=== PATIENT | male | born 1955 | race Caucasian/White ===

== ENCOUNTER 2020-03-16 21:01 | Emergency (ER) | payer BC, OTHER ==
[2020-03-16 21:06] VITALS: BP 145/88; PULSE 66; TEMP 97.9; BMI 24.7
[2020-03-16] MEDS ORDERED: ONDANSETRON 4 MG/2 ML VIAL IVPUSH ONE (21:07)
[2020-03-16] MEDS ORDERED: KETOROLAC TROMETHAMINE 30 MG/1 ML VIAL IVPUSH ONE (21:07)
[2020-03-16] MEDS ORDERED: SODIUM CHLORIDE 1,000 ML IV ONE (21:07)
[2020-03-16] MEDS ORDERED: morphine CARPU-JECT 2 MG/1 ML DISP.SYRIN IVPUSH ONE (21:18)
[2020-03-16] MEDS ORDERED: KETOROLAC TROMETHAMINE 30 MG/1 ML VIAL ONE (21:21)
[2020-03-16] MEDS ORDERED: ONDANSETRON 4 MG/2 ML VIAL ONE (21:21)
[2020-03-16 21:27] LABS: EOS % 0.8 % (0-4.5); HEMATOCRIT 46.5 % (35.4-49); HEMOGLOBIN 15.9 GM/dl (11.7-16.9); MCH 30.2 pg (25.7-33.7); MCHC 34.3 g/dl (32.0-35.9); MEAN CELL VOLUME 87.9 fl (80-96); MEAN PLT VOLUME 9.1 fl (7.5-11.1); MONO % 5.1 % (3.8-10.2); NEUT % 65.1 % (42.8-82.8); PLATELET COUNT 286 K/MM3 (134-434); RBC 5.28 M/mm3 (4.00-5.60); RDW 13.2 % (11.9-15.9); WHITE BLOOD COUNT 13.2 K/mm3 (4.0-10.8)
[2020-03-16 21:35] LABS: ALBUMIN 4.4 g/dl (3.4-5.0); BILIRUBIN,TOTAL 0.6 mg/dl (0.2-1); CALCIUM 9.5 mg/dl (8.5-10); CREATININE 1.4 mg/dl (0.55-1.3); POTASSIUM 4.1 mmol/L (3.5-5.1)
--- NOTE | 2020-03-16 22:51 | PDOC ---
Documentation entered by Izabela Burr SCRIBE, acting as scribe for Edwin Durant MD. Edwin Durant MD: This documentation has been prepared by the deweyibe, Izabela Burr SCRIBE, under my direction and personally reviewed by me in its entirety. I confirm that the documentation accurately reflects all work, treatment, procedures, and medical decision making performed by me. History of Present Illness - General Chief Complaint: Pain Stated Complaint: ABDOMINAL PAIN Time Seen by Provider: 03/16/20 21:06 History Source: Patient Exam Limitations: No Limitations - History of Present Illness Initial Comments: 03/16/20 21:45 The patient is a 64-year-old male who presents to the emergency department with abdominal pain. The patient reports a sudden onset of left flank pain about an hour ago radiating forward to the left lower quadrant, associated with nausea. The patient reports some mild pain yesterday but wasnt this severe. The patient reports he did have a single episode of dark-colored urine yesterday, denies dy suria, hematuria, frequency, or urgency to urinate. PAST MEDICAL HISTORY: no significant history. Denies prior history of kidney stones. PAST SURGICAL HISTORY: no significant history FAMILY HISTORY: no pertinent history SOCIAL HISTORY: Pt lives with family and is employed. +Tobacco use. MEDICATIONS: reviewed ALLERGIES: As per nursing notes PCP: Dr. Small. Review of system: General: No fevers or chills, no weakness, no weight loss HEENT: No change in vision. No sore throat. No ear pain CardioVascular: No chest pain or shortness of breath Respiratory:No cough, or wheezing. Gastrointestinal: +left flank pain. +left lower quadrant pain. +nausea. No vomiting, diarrhea or constipation, No rectal bleeding Genitourinary: No dysuria, hematuria, or frequency Musculoskeletal: No joint or muscle pain or swelling Neurologic: No headache, vertigo, dizziness or loss of consciousness Psychiatric: nor depression Skin: No rashes or easy bruising Endocrine: no increased thirst or abnormal weight change Allergic: no skin or latex allergy All other systems reviewed and normal Physical exam: General: Well-nourished well-developed individual, no acute distress. +appears uncomfortable. HEENT: Throat: Normal, tonsils normal, no erythema or exudate Neck: Supple, no meningeal signs, no lymphadenopathy Eyes :Pupils equal reactive and round, extraocular motion intact Abdomen: +mild tenderness to the left lower quadrant of the abdomen, no guarding or rebound. Normal bowel sounds. Back/flank: left CVA tenderness. Left flank tenderness on palpation and percussion. Extremities: Warm, dry, no cyanosis, clubbing, or edema Skin: No rashes Neuro: Alert and oriented x3, nonfocal exam, grossly intact, normal gait Psych: Normal mood and affect 03/16/20 22:47 Assessment and plan: This is a 64-year-old male who comes in complaining of flank pain on the left side. Patient had a work-up to rule out kidney stone and work-up revealed a 1.2 x 1.2 cm stone at the UPJ. There is some moderate hydronephrosis. Patient is comfortable at this time. Patient given Percocet and prescription for Percocet sent to his pharmacy. Patient also given an antinausea medicine with prescription to the pharmacy. Patient referred to a urologist and told to call the urologist in the morning. Patient discharged home with his Past History - Medical History Allergies/Adverse Reactions: Allergies Allergy/AdvReac Type Severity Reaction Status Date / Time No Known Allergies Allergy Verified 03/16/20 21:03 Home Medications: Ambulatory Orders Ondansetron [Ondansetron Odt] 8 mg PO TID PRN #16 tab.rapdis 03/16/20 Oxycodone HCl/Acetaminophen [Percocet 5-325 mg Tablet] 1 - 2 tab PO Q4H #20 tablet MDD 8 03/16/20 COPD: No Other medical history: Pt denies - Psycho-Social/Smoking History Smoking History: Current every day smoker Have you smoked in the past 12 months: Yes Number of Cigarettes Smoked Daily: 20 Information on smoking cessation initiated: No - Substance Abuse Hx (Audit-C & DAST Scrn) How often the patient has a drink containing alcohol: Never Score: In Men: 4 or > Positive; In Women: 3 or > Positive: 0 Screen Result (Pos requires Nsg. Audit-10AR): Negative In the last yr the pt used illegal drug/Rx for NonMed reason: No Score: Yes response is considered Positive: 0 Screen Result (Positive result requires Nsg. DAST-10): Negative *Physical Exam - Vital Signs Last Vital Signs Temp Pulse Resp BP Pulse Ox 97.9 F 66 18 145/88 99 03/16/20 21:03 03/16/20 21:03 03/16/20 21:03 03/16/20 21:03 03/16/20 21:03 ED Treatment Course - LABORATORY CBC & Chemistry Diagram: 03/16/20 21:05 03/16/20 21:08 - ADDITIONAL ORDERS Additional order review: 03/16/20 21:05 RBC 5.28 MCV 87.9 MCHC 34.3 RDW 13.2 MPV 9.1 Neutrophils % 65.1 Lymphocytes % 25.0 Monocytes % 5.1 Eosinophils % 0.8 Basophils % 4.0 H - Medications Given in the ED: ED Medications Discontinued Medications Generic Name Dose Route Start Last Admin Trade Name Freq PRN Reason Stop Dose Admin Ketorolac Tromethamine 30 mg 03/16/20 21:07 03/16/20 21:28 Toradol Injection - IVPUSH 03/16/20 21:08 30 mg ONCE ONE Administration Ondansetron HCl 4 mg 03/16/20 21:07 03/16/20 21:28 Zofran Injection IVPUSH 03/16/20 21:08 4 mg ONCE ONE Administration Discharge - Discharge Information Problems reviewed: Yes Clinical Impression/Diagnosis: Renal colic on left side Condition: Stable Disposition: HOME - Admission No - Additional Discharge Information Prescriptions: Oxycodone HCl/Acetaminophen [Percocet 5-325 mg Tablet] 1 - 2 tab PO Q4H #20 tablet MDD 8 Ondansetron [Ondansetron Odt] 8 mg PO TID PRN #16 tab.rapdis PRN Reason: Nausea - Follow up/Referral Referrals: Gee Shore MD [Staff Physician] - - Patient Discharge Instructions Additional Instructions: Stay well-hydrated. For the pain take Percocet 1 or 2 tablets every 4-6 hours. For nausea take Zofran 1 tablet let it dissolve underneath your tongue as often as every 6-8 hours Call the urologist in the morning and get an appointment to follow-up return to the emergency department immediately with ANY new, persistent or worsening symptoms. Continue any medications as previously prescribed by your physician. You should follow up with your primary doctor as soon as possible regarding rylie y's emergency department visit. . Please make sure your doctor reviews the results of your emergency evaluation. Thank you for coming to the Emergency Department today for your care. It was a pleasure to see you today. Please note that your evaluation is INCOMPLETE until you follow-up with your doctor. . - Post Discharge Activity
== END 2020-03-16 23:21 | disposition home or self-care (01) ==
LOC: FER 21:01
PROC: 3E033NZ Introduction of Analgesics, Hypnotics, Sedatives into Peripheral Vein, Percutaneous Approach (ICD-10-PCS; principal; 2020-03-16)
PROC: 3E033GC Introduction of Other Therapeutic Substance into Peripheral Vein, Percutaneous Approach (ICD-10-PCS; 2020-03-16)
PROC: 3E0337Z Introduction of Electrolytic and Water Balance Substance into Peripheral Vein, Percutaneous Approach (ICD-10-PCS; 2020-03-16)
DX: N23 Unspecified renal colic (principal)
CPT/HCPCS: 36415; 74176-TC; 80053; 81003; 81015; 85025; 87086; 99284-25

== ENCOUNTER 2021-04-12 11:13 | Emergency (ER) | payer OTHER, BC | END 2021-04-12 13:29 | disposition home or self-care (01) | LOC: JVIRT 11:13 | DX: Z20.822 Contact with and (suspected) exposure to COVID-19 (principal) | CPT/HCPCS: Q3014-GT ==

== ENCOUNTER 2023-11-15 15:33 | Inpatient (IN) | payer OTHER, BC ==
[2023-11-15 16:22] VITALS: BMI 25.7
[2023-11-15 16:42] LABS: INR 1.12 (0.83-1.09)
[2023-11-15 16:43] LABS: HEMATOCRIT 50.1 % (35.4-49); HEMOGLOBIN 16.6 G/dL (11.7-16.9); MCH 29.6 pg (25.7-33.7); MCHC 33.1 g/dl (32.0-35.9); MEAN CELL VOLUME 89.5 fl (80-96); MEAN PLT VOLUME 8.7 fl (7.5-11.1); PLATELET COUNT 176.8 10^3/uL (134-434); RDW 14.9 % (11.9-15.9); WHITE BLOOD COUNT 7.6 10^3/uL (4.0-10.8)
[2023-11-15 16:56] LABS: ALBUMIN 4.7 g/dl (3.4-5.0); BILIRUBIN,TOTAL 0.7 mg/dl (0.2-1); CALCIUM 10.3 mg/dl (8.5-10.1); CREATININE 1.1 mg/dl (0.6-1.3); POTASSIUM 4.6 mmol/L (3.5-5.1); TOT PROT 7.7 g/dl (6.4-8.2)
[2023-11-15 17:01] LABS: PLATELET ESTIMATE ADEQUATE
[2023-11-15 17:14] LABS: CHOLESTEROL 214 mg/dl (50-200); HDL CHOLESTEROL 31 mg/dl (40-60); LDL CHOLESTEROL (ONLY DFH) 111 mg/dl (5-100)
[2023-11-15] MEDS ORDERED: ASPIRIN 81 MG CHEWABLE TABLETS ONE (19:02)
[2023-11-15] MEDS: ASPIRIN 81 MG CHEWABLE TABLETS PO ONE (19:04)
[2023-11-16 08:45] LABS: CALCIUM 9.7 mg/dl (8.5-10.1); CREATININE 1.1 mg/dl (0.6-1.3); POTASSIUM 4.5 mmol/L (3.5-5.1)
[2023-11-16] MEDS: ASPIRIN 81 MG CHEWABLE TABLETS PO SCH (10:29)
[2023-11-16] MEDS: ATORVASTATIN CA 40 MG TABLET (FP) PO ONE (10:29)
[2023-11-16 10:53] VITALS: RESP 17
[2023-11-16 10:57] LABS: HEMATOCRIT 49.8 % (35.4-49); HEMOGLOBIN 16.4 GM/dL (11.7-16.9); MCH 29.5 pg (25.7-33.7); MEAN CELL VOLUME 89.6 fl (80-96); MEAN PLT VOLUME 9.1 fl (7.5-11.1); PLATELET COUNT 211 10^3/uL (134-434); RBC 5.56 M/mm3 (4.00-5.60); RDW 14.6 % (11.9-15.9); WHITE BLOOD COUNT 8.9 K/mm3 (4.0-10.0)
[2023-11-16 14:37] VITALS: BP 122/78; PULSE 74; TEMP 98.2
[2023-11-16] MEDS ORDERED: ATORVASTATIN CA 40 MG TABLET (FP) PO SCH (22:00)
== END 2023-11-16 16:34 | disposition home or self-care (01) | DRG 66 ==
LOC: FER 15:33 → FM/S 20:24
PROVIDERS: ADMIT Internal Medicine
DX: I63.89 Other cerebral infarction (principal); F17.210 Nicotine dependence, cigarettes, uncomplicated; I10 Essential (primary) hypertension; E78.5 Hyperlipidemia, unspecified; K21.9 Gastro-esophageal reflux disease without esophagitis; G62.9 Polyneuropathy, unspecified; R47.1 Dysarthria and anarthria; R29.810 Facial weakness; R47.81 Slurred speech; R29.702 NIHSS score 2
CPT/HCPCS: 0241U-QW; 36415; 70496-TC; 70498-TC; 70551-TC; 80048; 80053; 80061; 81003; 81015; 83036; 84484; 85025; 85027; 85610; 85730; 86850; 86900; 86901; 87086; 93005; 93306-TC; 97116-GP; 97162-GP; 99285-25